=== PATIENT | male | born 1960 | race Caucasian/White ===

== ENCOUNTER 2020-01-25 11:46 | Emergency (ER) | payer SELFPAY ==
[~2020-01-25] VITALS: Ht 180.3 cm; Wt 95.4 kg
[2020-01-25] MEDS ORDERED: KETOROLAC 30 MG/ML VIAL IVP ONE (12:15)
[2020-01-25] MEDS ORDERED: NS IV 1000 ML 1,000 ML IV SCH (12:15)
--- NOTE | 2020-01-25 12:15 | ED Back Pain ---
General Chief Complaint: Back Problems Stated Complaint: LOWER BACK PAIN Nursing Triage Note: AMB TO ROOM REPORTS THAT ON WEDNESDAY WAS GETTING UP OFF BED WHEN ONSET OF BACK PAIN. WAS SEEN AT URGENT CARE ON WEDNESDAY DX WITH MUSCLE SPASM GIVEN NAPROXEN,TRAMADOL,AND MUSCLE REXLANT NOT GETTING ANY BETTER. PAIN IS RADIATING AROUND TO FRONT NOW. Nursing Sepsis Screen: No Definite Risk Source of Information: Patient Exam Limitations: No Limitations History of Present Illness Date Seen by Provider: Jan 25, 2020 Time Seen by Provider: 12:00 Initial Comments Patient complains of right lower back pain radiating to right lower quadrant for the past 24 hours. He started having right lower back pain several days ago. He denies injury. He was seen in urgent care and prescribed tramadol and an NSAID. Pain became severe last night and migrated to the right lower quadrant. He took 2 tramadol without relief. He denies nausea vomiting fevers chills. There are no modifying factors. Pain is sharp and severe. Allergies and Home Medications Allergies Coded Allergies: No Known Drug Allergies (Unverified , 01/25/20) Home Medications Hydrocodone/Acetaminophen 1 Each Tablet, 1 EACH PO Q6H PRN for PAIN-SEVERE (8- 10) Prescribed by: MEME PARKS on 01/25/20 1331 Patient Home Medication List Home Medication List Reviewed: Yes Review of Systems Constitutional: no symptoms reported EENTM: no symptoms reported Respiratory: no symptoms reported Cardiovascular: no symptoms reported Gastrointestinal: RLQ Genitourinary: pain Musculoskeletal: back pain Skin: no symptoms reported All Other Systems Reviewed Negative Unless Noted: Yes Past Opitiuh-Nfjzzm-Sqsqsk Hx Patient Social History Recent Foreign Travel: No Contact w/Someone Who Travel: No Recent Infectious Disease Expo: No Physical Exam Vital Signs Vital Signs - First Documented 01/25/20 11:50 Temp 36.6 Pulse 60 Resp 18 B/P (MAP) 151/84 (106) Pulse Ox 97 O2 Delivery Room Air Capillary Refill : Less Than 3 Seconds Height, Weight, BMI Height: '" Weight: lbs. oz. kg; 29.00 BMI Method: General Appearance: WD/WN, Moderate Distress (can't sit still) HEENT: Pharynx Normal Neck: Supple Cardiovascular: Regular Rate, Rhythm, No Edema Respiratory: Lungs Clear, Normal Breath Sounds Gastrointestinal: Non Tender, Soft Back: No CVA Tenderness (L) Extremity: Normal Inspection, Normal Range of Motion Neurologic/Psychiatric: Alert, No Motor/Sensory Deficits Skin: Normal Color, Warm/Dry Progress/Results/Core Measures Results/Orders Lab Results Laboratory Tests Test 01/25/20 12:18 01/25/20 12:46 Range/Units White Blood Count 8.2 4.3-11.0 10^3/uL Red Blood Count 5.06 4.35-5.85 10^6/uL Hemoglobin 16.5 13.3-17.7 G/DL Hematocrit 48 40-54 % Mean Corpuscular Volume 96 80-99 FL Mean Corpuscular Hemoglobin 33 25-34 PG Mean Corpuscular Hemoglobin Concent 34 32-36 G/DL Red Cell Distribution Width 14.2 10.0-14.5 % Platelet Count 229 130-400 10^3/uL Mean Platelet Volume 9.1 7.4-10.4 FL Neutrophils (%) (Auto) 49 42-75 % Lymphocytes (%) (Auto) 37 12-44 % Monocytes (%) (Auto) 8 0-12 % Eosinophils (%) (Auto) 6 0-10 % Basophils (%) (Auto) 0 0-10 % Neutrophils # (Auto) 4.0 1.8-7.8 X 10^3 Lymphocytes # (Auto) 3.0 1.0-4.0 X 10^3 Monocytes # (Auto) 0.6 0.0-1.0 X 10^3 Eosinophils # (Auto) 0.5 H 0.0-0.3 10^3/uL Basophils # (Auto) 0.0 0.0-0.1 10^3/uL Sodium Level 139 135-145 MMOL/L Potassium Level 4.1 3.6-5.0 MMOL/L Chloride Level 107 98-107 MMOL/L Carbon Dioxide Level 22 21-32 MMOL/L Anion Gap 10 5-14 MMOL/L Blood Urea Nitrogen 9 7-18 MG/DL Creatinine 0.96 0.60-1.30 MG/DL Estimat Glomerular Filtration Rate > 60 BUN/Creatinine Ratio 9 Glucose Level 76 70-105 MG/DL Calcium Level 9.1 8.5-10.1 MG/DL Corrected Calcium 8.9 8.5-10.1 MG/DL Total Bilirubin 0.5 0.1-1.0 MG/DL Aspartate Amino Transf (AST/SGOT) 18 5-34 U/L Alanine Aminotransferase (ALT/SGPT) 7 0-55 U/L Alkaline Phosphatase 59 40-136 U/L Total Protein 7.4 6.4-8.2 GM/DL Albumin 4.2 3.2-4.5 GM/DL Urine Color YELLOW Urine Clarity CLEAR Urine pH 7.0 5-9 Urine Specific [place] 1.010 L 1.016-1.022 Urine Protein NEGATIVE NEGATIVE Urine Glucose (UA) NEGATIVE NEGATIVE Urine Ketones NEGATIVE NEGATIVE Urine Nitrite NEGATIVE NEGATIVE Urine Bilirubin NEGATIVE NEGATIVE Urine Urobilinogen 0.2 < = 1.0 MG/DL Urine Leukocyte Esterase NEGATIVE NEGATIVE Urine RBC (Auto) NEGATIVE NEGATIVE Urine RBC RARE /HPF Urine WBC NONE /HPF Urine Crystals NONE /LPF Urine Bacteria NEGATIVE /HPF Urine Casts NONE /LPF Urine Mucus NEGATIVE /LPF Urine Culture Indicated NO My Orders Orders - MEME PARKS MD Ct Abd/Pelvis Wo(Kidney Stone) (01/25/20 12:10) Cbc With Automated Diff (01/25/20 12:10) Comprehensive Metabolic Panel (01/25/20 12:10) Ua Culture If Indicated (01/25/20 12:10) Ketorolac Injection (Toradol Injection) (01/25/20 12:15) Ns Iv 1000 Ml (Sodium Chloride 0.9%) (01/25/20 12:15) Medications Given in ED Current Medications Medications Dose Ordered Sig/Michael Route Start Time Stop Time Status Last Admin Dose Admin Ketorolac Tromethamine 30 mg ONCE ONCE IVP 01/25/20 12:15 01/25/20 12:16 DC 01/25/20 12:27 30 MG Vital Signs/I&O 01/25/20 11:50 Temp 36.6 Pulse 60 Resp 18 B/P (MAP) 151/84 (106) Pulse Ox 97 O2 Delivery Room Air Blood Pressure Mean: 106 Progress Progress Note : Time: 13:29 Progress Note Test results reviewed and discussed with patient. We'll add hydrocodone for pain. He is to stop taking his tramadol. Also encouraged laxative use and increase fluid intake to help his constipation. Departure Impression Primary Impression: Back pain Disposition: 01 HOME, SELF-CARE Condition: Stable Departure-Patient Inst. Decision time for Depature: 13:29 Referrals: NO,LOCAL PHYSICIAN (PCP/Family) Primary Care Physician Patient Instructions: Low Back Pain (DC) Add. Discharge Instructions: Increase fluid intake. Take laxatives or stool softeners to aid with your c onstipation. Stop tramadol. Start hydrocodone for pain. All discharge instructions reviewed with patient and/or family. Voiced understanding. Scripts Hydrocodone/Acetaminophen (Hydrocodone-Acetamin 5-325 mg) 1 Each Tablet 1 EACH PO Q6H PRN for PAIN-SEVERE (8-10), #14 TAB Prov: MEME PARKS MD 01/25/20 MEME PARKS MD Jan 25, 2020 12:15
[2020-01-25 12:30] LABS: BASOPHILS % (AUTO) 0 % (0-10); EOSINOPHILS # (AUTO) 0.5 10^3/uL (0.0-0.3); EOSINOPHILS % (AUTO) 6 % (0-10); HEMATOCRIT 48 % (40-54); HEMOGLOBIN 16.5 G/DL (13.3-17.7); LYMPHOCYTES % (AUTO) 37 % (12-44); MEAN CORPUSCULAR HEMOGLOBIN 33 PG (25-34); MEAN CORPUSCULAR HGB CONC 34 G/DL (32-36); MEAN CORPUSCULAR VOLUME 96 FL (80-99); MEAN PLATELET VOLUME 9.1 FL (7.4-10.4); MONOCYTES # (AUTO) 0.6 X 10^3 (0.0-1.0); MONOCYTES % (AUTO) 8 % (0-12); NEUTROPHILS % (AUTO) 49 % (42-75); PLATELET COUNT 229 10^3/uL (130-400); RED CELL DISTRIBUTION WIDTH 14.2 % (10.0-14.5); WHITE BLOOD COUNT 8.2 10^3/uL (4.3-11.0)
[2020-01-25 12:44] LABS: ALBUMIN 4.2 GM/DL (3.2-4.5)
[2020-01-25 12:45] LABS: CHLORIDE 107 MMOL/L (98-107); POTASSIUM 4.1 MMOL/L (3.6-5.0); SODIUM 139 MMOL/L (135-145)
[2020-01-25 12:46] LABS: CALCIUM 9.1 MG/DL (8.5-10.1)
[2020-01-25 12:47] LABS: GLUCOSE 76 MG/DL (70-105); TOTAL PROTEIN 7.4 GM/DL (6.4-8.2)
[2020-01-25 12:48] LABS: CARBON DIOXIDE 22 MMOL/L (21-32)
[2020-01-25 12:49] LABS: BILIRUBIN,TOTAL 0.5 MG/DL (0.1-1.0)
[2020-01-25 12:50] LABS: BILIRUBIN,URINE NEGATIVE (NEGATIVE); CLARITY,URINE CLEAR; COLOR,URINE YELLOW; GLUCOSE, URINE (UA) NEGATIVE (NEGATIVE); KETONES,URINE NEGATIVE (NEGATIVE); LEUKOCYTE ESTERASE ,URINE NEGATIVE (NEGATIVE); NITRITE,URINE NEGATIVE (NEGATIVE); PROTEIN,URINE NEGATIVE (NEGATIVE)
[2020-01-25 12:50] LABS: ALKALINE PHOSPHATASE 59 U/L (40-136)
[2020-01-25 12:51] LABS: CREATININE SERUM 0.96 MG/DL (0.60-1.30); GFR ESTIMATED > 60
[2020-01-25 12:52] LABS: BUN/CREATININE RATIO 9
[2020-01-25 12:54] LABS: ALANINE AMINOTRANSFERASE 7 U/L (0-55)
[2020-01-25 12:57] LABS: BACTERIA,URINE NEGATIVE /HPF; RBC,URINE RARE /HPF
--- NOTE | 2020-01-25 13:13 | Diagnostic Imaging Report ---
PROCEDURE: CT urinary tract, rule out kidney stone. TECHNIQUE: Multiple contiguous axial images were obtained through the abdomen and pelvis without the use of intravenous contrast. Auto Exposure Controls were utilized during the CT exam to meet ALARA standards for radiation dose reduction. INDICATION: Right flank pain, hematuria FINDINGS: The lung bases are clear. The liver appears normal. Gallbladder is present. Pancreas is normal. The spleen is not enlarged. There is no mass, calculus or hydronephrosis seen in either kidney. Ureters are clear. Urinary bladder is normal. The appendix is normal. Small bowel is not dilated. There is a large amount of stool in the ascending and transverse colon. IMPRESSION: Fecal stasis in the right hemicolon. No acute abnormality is seen. Dictated by: Dictated on workstation # [id number]
--- OUTSIDE RECORDS SUMMARY | 2020-01-25 13:26 | XMS REPORT | Continuity of Care Document ---
Demographics Preferred Language Unknown Marital Status Unknown Sabianist Affiliation Unknown Race Unknown Ethnic Group Unknown Author Organization Unknown Address Unknown Phone Unavailable Allergies There is no data. Medications There is no data. Problems There is no data. Procedures There is no data. Results Test Result Range Complete blood count (CBC) with automate d white blood cell (WBC) differential - 01/25/20 12:18 Blood leukocytes automated count (number/volume) 8.2 10*3/uL 4.3-11.0 Blood erythrocytes automated count (number/volume) 5.06 10*6/uL 4.35-5.85 Venous blood hemoglobin measurement (mass/volume) 16.5 g/dL 13.3-17.7 Blood hematocrit (volume fraction) 48 % 40-54 Automated erythrocyte mean corpuscular volume 96 [ foz_us] 80-99 Automated erythrocyte mean corpuscular h emoglobin (mass per erythrocyte) 33 pg 25-34 Automated erythrocyte mean corpuscular h emoglobin concentration measurement (mass/volume) 34 g/dL 32-36 Automated erythrocyte distribution width ratio 14. 2 % 10.0- 14.5 Automated blood platelet count (count/volume) 229 10*3/uL 130-400 Automated blood platelet mean volume measurement 9.1 [foz_us] 7.4-10.4 Automated blood neutrophils/100 leukocytes 49 % 42-75 Automated blood lymphocytes/100 leukocytes 37 % 12-44 Blood monocytes/100 leukocytes 8 % 0-12 Automated blood eosinophils/100 leukocytes 6 % 0-10 Automated blood basophils/100 leukocytes 0 % 0-10 Blood neutrophils automated count (number/volume) 4.0 10*3 1.8-7.8 Blood lymphocytes automated count (number/volume) 3.0 10*3 1.0-4.0 Blood monocytes automated count (number/volume) 0. 6 10*3 0.0-1.0 Automated eosinophil count 0.5 10*3/uL 0 .0-0.3 Automated blood basophil count (count/volume) 0.0 10*3/uL 0.0-0.1 Comprehensive metabolic panel - 01/25/20 12:18 Serum or plasma sodium measurement (moles/volume) 139 mmol/L 135-145 Serum or plasma potassium measurement (moles/volume) 4.1 mmol/L 3.6-5.0 Serum or plasma chloride measurement (moles/volume) 107 mmol/L 98-107 Carbon dioxide 22 mmol/L 21-32 Serum or plasma anion gap determination (moles/volume) 10 mmol/L 5-14 Serum or plasma urea nitrogen measurement (mass/volume ) 9 mg/dL 7-18 Serum or plasma creatinine measurement (mass/volume) 0.96 mg/dL 0.60-1.30 Serum or plasma urea nitrogen/creatinine mass ratio 9 NRG Serum or plasma creatinine measurement w ith calculation of estimated glomerular filtration rate > NRG Serum or plasma glucose measurement (mass/volume) 76 mg/dL 70-105 Serum or plasma calcium measurement (mass/volume) 9.1 mg/dL 8.5-10.1 Serum or plasma total bilirubin measurement (mass/volu me) 0.5 mg/dL 0.1-1.0 Serum or plasma alkaline phosphatase luis surement (enzymatic activity/volume) 59 U/L 40-136 Serum or plasma aspartate aminotransfera se measurement (enzymatic activity/volume) 18 U/L 5-34 Serum or plasma alanine aminotransferase measurement (enzymatic activity/volume) 7 U/L 0-55 Serum or plasma protein measurement (mass/volume) 7.4 g/dL 6.4-8.2 Serum or plasma albumin measurement (mass/volume) 4.2 g/dL 3.2-4.5 CALCIUM CORRECTED 8.9 mg/dL 8.5-10.1 Complete urinalysis with reflex to cultu re - 01/25/20 12:46 Urine color determination YELLOW NRG Urine clarity determination CLEAR NR G Urine pH measurement by test strip 7.0 5-9 Specific gravity of urine by test strip 1.010 1.016-1.022 Urine protein assay by test strip, semi-quantitative NEGATIVE NEGATIVE Urine glucose detection by automated test strip NE GATIVE NEGATIVE Erythrocytes detection in urine sediment by light micr oscopy NEGATIVE NEGATIVE Urine ketones detection by automated test strip NE GATIVE NEGATIVE Urine nitrite detection by test strip NEGATIVE NEGATIVE Urine total bilirubin detection by test strip NEGA TIVE NEGATIVE Urine urobilinogen measurement by automated test strip (mass/volume) 0.2 mg/dL < = 1.0 Urine leukocyte esterase detection by dipstick NEG ATIVE NEGATIVE Automated urine sediment erythrocyte cou nt by microscopy (number/high power field) RARE NRG Automated urine sediment leukocyte count by microscopy (number/high power field) NONE NRG Bacteria detection in urine sediment by light microsco py NEGATIVE NRG Crystals detection in urine sediment by light microsco py NONE NRG Casts detection in urine sediment by light microscopy NONE NRG Mucus detection in urine sediment by light microscopy NEGATIVE NRG Complete urinalysis with reflex to culture NO NRG Encounters ACCT No. Visit Date/Time Discharge Status Pt. Type Provider Facility Loc./Unit Complaint [id number] 01/25/2020 12:32:00 Document Registration
[2020-01-25] MEDS ORDERED: HYDR-83 PO (13:31)
[2020-01-25 13:54] VITALS: BP 155/90
== END 2020-01-25 14:03 | disposition home or self-care (01) ==
LOC: EDUNIT# 11:46 → ER 11:48
DX: M54.5 Low back pain (principal)
CPT/HCPCS: 36415; 74176; 80053; 81000; 85025

== ENCOUNTER 2020-02-18 09:30 | Emergency (ER) | payer SELFPAY ==
[~2020-02-18] VITALS: Ht 180 cm; Wt 99.9 kg
[~2020-02-18 09:30] MED LIST: HYDR-3812 PO
--- OUTSIDE RECORDS SUMMARY | 2020-02-18 09:36 | XMS REPORT | Continuity of Care Document ---
Author Organization Unknown Address Unknown Phone Unavailable Allergies Active Description Code Type Severity Reaction Onset Reported/Identified Relationship to Patient Clinical Status Yes No Known Drug Allergies [id number] Drug Allergy Unknown N/A 01/25/2020 Medications There is no data. Problems Date Dx Coded Attending Type Code Diagnosis Diagnosed By 01/29/2020 KASEY STEELE, MEME Cevallos Ot M54. 5 LOW BACK PAIN Procedures There is no data. Results Test [...] Status Pt. Type Provider Facility Loc./Unit Complaint [id number] 01/25/2020 11:48:00 020 14:03:00 DIS Outpatient KASEY STEELE, MEME Cisneros [facility] ER LOWER BACK PAIN
[2020-02-18] MEDS ORDERED: ORPHENADRINE 60 MG/2 ML (NORFLEX) AMP (ED ONLY) IM STA (09:43)
[2020-02-18] MEDS ORDERED: KETOROLAC 60 MG/2 ML VIAL IM STA (09:43)
--- NOTE | 2020-02-18 09:43 | ED Upper Extremity ---
General Chief Complaint: Upper Extremity Stated Complaint: SHOULDER,ARM PAIN RT Source: patient Exam Limitations: no limitations History of Present Illness Date Seen by Provider: Feb 18, 2020 Time Seen by Provider: 09:43 Initial Comments 59-year-old male presents with right shoulder right clavicle pain. Patient reports the pain has been going on for at least a couple weeks. 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 Pain gets worse with palpation movement. Patient reports the pain is in a shoulder and his arm and his clavicle. Pain is totally reproducible with any type of movement, especially with movement against resistance of the right arm. He has no nausea vomiting fever or chills shortness of breath chest pain. Allergies and Home Medications Allergies Coded Allergies: No Known Drug Allergies (Unverified , 01/25/20) Home Medications Hydrocodone/Acetaminophen 1 Each Tablet, 1 EACH PO Q6H PRN for PAIN-SEVERE (8- 10) Prescribed by: MEME PARKS on 01/25/20 1331 Patient Home Medication List Home Medication List Reviewed: Yes Review of Systems Constitutional: No chills, No fever Respiratory: No cough, No short of breath Cardiovascular: No chest pain, No palpitations Gastrointestinal: No abdominal pain, No vomiting Musculoskeletal: see HPI Skin: no symptoms reported Past Ioogtrq-Sirtvh-Xfueeg Hx Past Med/Social Hx: Reviewed Nursing Past Med/Soc Hx Patient Social History Recent Foreign Travel: No Contact w/Someone Who Travel: No Past Medical History Surgeries: Yes (HERNIA) Orthopedic Cardiac: No Neurological: No Genitourinary: No Endocrine: No HEENT: No Cancer: No Psychosocial: No Blood Disorders: No Physical Exam Vital Signs Vital Signs - First Documented 02/18/20 09:30 Temp 36.6 Pulse 56 Resp 18 B/P (MAP) 163/103 (123) Pulse Ox 97 O2 Delivery Room Air Capillary Refill : Height, Weight, BMI Height: '" Weight: lbs. oz. kg; 29.00 BMI Method: General Appearance: WD/WN, no apparent distress Cardiovascular: normal peripheral pulses, regular rate, rhythm Respiratory: lungs clear, normal breath sounds, no respiratory distress Gastrointestinal: soft; No distended, No tenderness Shoulder: pain (pain with palpation of the clavicle and posterior trapezius. Pain is totally reproducible with Spurling's along with any movement against resistance.) Elbow/Forearm: normal inspection Wrist: Yes normal inspection Hand: normal inspection Neurologic/Psychiatric: alert, normal mood/affect, oriented x 3 Skin: normal color, warm/dry Progress/Results/Core Measures Results/Orders My Orders Orders - CASANDRA GOMEZ DO Shoulder, Right, 3 Views (02/18/20 09:43) Ketorolac Injection (Toradol Injection) (02/18/20 09:43) Orphenadrine Inj (Ed Only) (Norflex Inje (02/18/20 09:43) Vital Signs/I&O 02/18/20 09:30 Temp 36.6 Pulse 56 Resp 18 B/P (MAP) 163/103 (123) Pulse Ox 97 O2 Delivery Room Air Diagnostic Imaging Diagonstic Imaging: Xray Comments [facility], [place] NAME: CHARLIE RAMOS JR [facility] REC#: [id number] PT STATUS: REG ER : 1960 PHYSICIAN: CASANDRA GOMEZ DO ADMIT DATE: 02/18/20/ER Draft Date of Exam:02/18/20 SHOULDER, RIGHT, 3 VIEWS INDICATION: Pain. Three views of the right shoulder were obtained. FINDINGS: There is mild arthrosis of the acromioclavicular joint. There is no fracture or dislocation. Right lung is clear. Soft tissues are unremarkable. IMPRESSION: Mild arthrosis of the acromioclavicular joint, otherwise unremarkable. Reviewed: Reviewed by Me, Reviewed/Discussed Departure Impression Primary Impression: Osteoarthritis, shoulder Qualified Codes: M19.011 - Primary osteoarthritis, right shoulder Additional Impression: Overuse syndrome of shoulder Qualified Codes: S46.911A - Strain of unspecified muscle, fascia and tendon at shoulder and upper arm level, right arm, initial encounter Disposition: 01 HOME, SELF-CARE Condition: Stable Departure-Patient Inst. Referrals: NO,LOCAL PHYSICIAN (PCP/Family) Primary Care Physician Patient Instructions: Overuse Injuries (DC), Shoulder Pain (DC) Add. Discharge Instructions: Follow-up with your primary care for continuation of care and further evaluation All discharge instructions reviewed with patient and/or family. Voiced understanding. Scripts Cyclobenzaprine HCl (Cyclobenzaprine HCl) 5 Mg Tablet 5 MG PO TID, #15 TAB Prov: CASANDRA GOMEZ DO 02/18/20 Naproxen (Naprosyn) 500 Mg Tablet 500 MG PO BID, #30 TAB 0 Refills Prov: CASANDRA GOMEZ DO 02/18/20 CASANDRA GOMEZ DO Feb 18, 2020 09:43
--- NOTE | 2020-02-18 10:04 | Diagnostic Imaging Report ---
INDICATION: Pain. Three views of the right shoulder were obtained. FINDINGS: There is mild arthrosis of the acromioclavicular joint. There is no fracture or dislocation. Right lung is clear. Soft tissues are unremarkable. IMPRESSION: Mild arthrosis of the acromioclavicular joint, otherwise unremarkable. Dictated by: Dictated on workstation # [id number]
[2020-02-18] MEDS ORDERED: CYCL5TAB PO (10:25)
[2020-02-18] MEDS ORDERED: NAPR-1071 PO (10:25)
[2020-02-18 10:35] VITALS: BP 146/92
== END 2020-02-18 10:36 | disposition home or self-care (01) ==
LOC: EDUNIT# 09:30 → ER 09:32
DX: M19.011 Primary osteoarthritis, right shoulder (principal); S46.911A Strain of unspecified muscle, fascia and tendon at shoulder and upper arm level, right arm, initial encounter; X58.XXXA Exposure to other specified factors, initial encounter
CPT/HCPCS: 73030

== ENCOUNTER 2023-05-14 13:31 | Outpatient (RCR) | payer OTHER ==
[~2023-05-14 13:31] MED LIST changes: +ACHD5005 PO; +CYCL5TAB PO; -HYDR-3812 PO; +NAPR-1071 PO
== END 2023-05-18 | disposition home or self-care (01) ==
DX: M25.561 Pain in right knee (principal); M54.50 Low back pain, unspecified; Z96.651 Presence of right artificial knee joint

== ENCOUNTER 2023-06-09 12:56 | Outpatient (RCR) | payer OTHER | END 2023-06-17 | disposition home or self-care (01) | DX: M25.561 Pain in right knee (principal); M54.50 Low back pain, unspecified; Z96.651 Presence of right artificial knee joint ==